=== PATIENT | female | born 1985 | race Asian ===

== ENCOUNTER 2020-10-17 04:57 | Emergency (ER) | payer BC ==
[~2020-10-17] VITALS: Ht 152.4 cm; Wt 50.8 kg
[2020-10-17] MEDS ORDERED: BACITRACIN ZINC 0.9GM TP ONE ×2 (05:21→05:30)
== END 2020-10-17 05:20 | disposition home or self-care (01) ==
LOC: ER 05:18
DX: S91.104A Unspecified open wound of right lesser toe(s) without damage to nail, initial encounter (principal); W22.09XA Striking against other stationary object, initial encounter; Y93.01 Activity, walking, marching and hiking; Y92.008 Other place in unspecified non-institutional (private) residence as the place of occurrence of the external cause
CPT/HCPCS: 99283